=== PATIENT | male | born 1950 | race Caucasian/White ===

== ENCOUNTER 2024-06-09 14:28 | Emergency (ER) | payer MEDICARE ==
[~2024-06-09] VITALS: Ht 170.2 cm; Wt 59.0 kg
[2024-06-09] MEDS ORDERED: DOXYCYCLINE HY100 MG PO (16:13)
[2024-06-09] MEDS ORDERED: AMOX TR-K CLV1 EAC2 PO (16:13)
[2024-06-09 16:19] VITALS: PULSE 85; RESP 17; TEMP 99.8
[2024-06-09] MEDS ORDERED: ACETAMINOPHEN 325 MG TAB PO ONE (16:45)
[2024-06-09 17:50] VITALS: BP 141/76; PULSE 87; RESP 18; TEMP 98.4; O2SAT 97
== END 2024-06-09 17:54 | disposition home or self-care (01) ==
LOC: ER 14:33
DX: R50.9 Fever, unspecified (principal); R05.9 Cough, unspecified; B20 Human immunodeficiency virus [HIV] disease; Z59.00 Homelessness unspecified
CPT/HCPCS: 71046; 99284